=== PATIENT | male | born 1950 | race Caucasian/White ===

== ENCOUNTER 2018-01-16 09:45 | Day surgery (SDC) | payer OTHER ==
[~2018-01-16] VITALS: Ht 170.2 cm; Wt 136.1 kg
[~2018-01-16 09:45] MED LIST: ACTOS30 MG PO; Coumadin dosing per PO; DIGOXIN250 MCG PO; DILTIAZEM 24HR240 MG PO; ENDOCET 5-3251 EACH PO; Feosol PO; GLIPIZIDE XL10 MG PO; GLUCOPHAGE1000 MG PO; Glucotrol PO; Hydrodiuril,Oretic,E PO; K-DUR10 MEQ PO; LOPRESSOR50 MG PO; TRESIBA FL200 UNIT/1 SC; TRULICITY0.75 MG/0. SC; XARELTO20 MG PO
== END 2018-01-16 15:17 | disposition home or self-care (01) ==
LOC: CATH 09:45
PROVIDERS: Internal Medicine Cardiovascular Disease
DX: I25.10 Atherosclerotic heart disease of native coronary artery without angina pectoris (principal); E66.01 Morbid (severe) obesity due to excess calories; Z68.42 Body mass index [BMI] 45.0-49.9, adult; I10 Essential (primary) hypertension; E78.5 Hyperlipidemia, unspecified; G47.33 Obstructive sleep apnea (adult) (pediatric); I48.0 Paroxysmal atrial fibrillation; E11.9 Type 2 diabetes mellitus without complications; Z79.84 Long term (current) use of oral hypoglycemic drugs; Z79.01 Long term (current) use of anticoagulants
CPT/HCPCS: 82948; 85347; C1769; C1887; J1644; J1815; J2250; J3010; J7040